=== PATIENT | female | born 1980 | race Two or more races ===

== ENCOUNTER 2017-09-02 19:32 | Emergency (ER) | payer OTHER ==
[2017-09-02 19:39] VITALS: BP 128/81
--- NOTE | 2017-09-02 19:51 | ER Document Report ---
ED Extremity Problem, Lower - General Chief Complaint: Toe Injury Stated Complaint: TOE INJURY Time Seen by Provider: 09/02/17 19:49 Mode of Arrival: Ambulatory Information source: Patient - HPI Patient complains to provider of: Injury, Pain Location: Great Toe Occurred: Just prior to arrival Where: Home Onset/Duration: Sudden Quality of pain: Achy Severity: Mild Pain Level: 1 Context: Stubbed Recent injury: Yes Exacerbated by: Movement, Walking Relieved by: Nothing Notes: Patient is a 37-year-old female presenting to the emergency room complaining of injury to left great toe, states she stubbed it on furniture and part of the nail actually came off, she states she called the nurse hotline who advised her to come to the emergency room for evaluation, she is already applied Neosporin to the area, there is no active bleeding, she denies pain or injury elsewhere - Related Data Allergies/Adverse Reactions: No Known Allergies Allergy (Unverified 09/02/17 19:35) Past Medical History - General Information source: Patient - Social History Smoking Status: Never Smoker Family History: Reviewed & Not Pertinent - Past Medical History Cardiac Medical History: Denies: Hx Coronary Artery Disease, Hx Heart Attack, Hx Hypertension Pulmonary Medical History: Denies: Hx Asthma, Hx Bronchitis, Hx COPD, Hx Pneumonia Neurological Medical History: Denies: Hx Cerebrovascular Accident, Hx Seizures Renal/ Medical History: Denies: Hx Peritoneal Dialysis Malignancy Medical History: Musculoskeltal Medical History: Denies Hx Arthritis Past Surgical History: Denies: Hx Hysterectomy, Hx Pacemaker - Immunizations Hx Diphtheria, Pertussis, Tetanus Vaccination: No Review of Systems - Review of Systems Constitutional: No symptoms reported EENT: No symptoms reported Cardiovascular: No symptoms reported Respiratory: No symptoms reported Gastrointestinal: No symptoms reported Genitourinary: No symptoms reported Female Genitourinary: No symptoms reported Musculoskeletal: See HPI Skin: See HPI Hematologic/Lymphatic: No symptoms reported Neurological/Psychological: No symptoms reported -: Yes All other systems reviewed and negative Physical Exam - Vital signs Vitals: Temp Pulse Resp BP Pulse Ox 99.1 F 71 15 128/81 H 99 09/02/17 19:37 09/02/17 19:37 09/02/17 19:37 09/02/17 19:37 09/02/17 19:37 - Notes Notes: - General General appearance: Appears well, Alert In distress: None - HEENT Head: Normocephalic, Atraumatic Eyes: Normal Conjunctiva: Normal Extraocular movements intact: Yes Eyelashes: Normal Pupils: PERRL - Respiratory Respiratory status: No respiratory distress - Cardiovascular Rhythm: Regular - Abdominal Inspection: Normal - Back Back: Normal - Extremities General upper extremity: Normal inspection General lower extremity: On the left great toe the lateral portion of the toenail is removed completely, patient has applied bacitracin to this area, there is no active bleeding, no drainage otherwise, distal sensation is intact - Neurological Neuro grossly intact: Yes Orientation: AAOx4 Rogers Coma Scale Eye Opening: Spontaneous Heath Coma Scale Verbal: Oriented Rogers Coma Scale Motor: Obeys Commands Rogers Coma Scale Total: 15 - Psychological Associated symptoms: Normal affect, Normal mood - Skin Skin Temperature: Warm Skin Moisture: Dry Skin Color: Normal Course - Re-evaluation Re-evalutation: 09/02/17 19:58 Patient with partial nail avulsion to the left great toe after stubbing her toe on some furniture, she is already applied bacitracin to the area, she was given a prescription for Keflex and advised to take it only if signs or symptoms of an infection should develop, otherwise advised to take Tylenol or Motrin as needed for pain, with the toe rest, follow-up with a primary care provider as needed or return if any additional concerns, patient acknowledges understanding and agreement with this plan - Vital Signs Vital signs: Temp Pulse Resp BP Pulse Ox 99.1 F 71 15 128/81 H 99 09/02/17 19:37 09/02/17 19:37 09/02/17 19:37 09/02/17 19:37 09/02/17 19:37 Discharge - Discharge Clinical Impression: Injury of left great toe Qualifiers: Encounter type: initial encounter Qualified Code(s): S99.922A - Unspecified injury of left foot, initial encounter Condition: Stable Disposition: HOME, SELF-CARE Instructions: Avulsed Nail ([facility]) Additional Instructions: Follow up with your primary care provider in one to 2 days. Return to the emergency room immediately if symptoms worsen or any additional concerns. Apply antibiotic ointment 2-3 times daily. Keep wound clean and covered. Take antibiotics only if signs and symptoms of an infection develop which is increased swelling or pain, increased redness, increased warmth, or pus drainage. Prescriptions: Cephalexin Monohydrate [Keflex 500 mg Capsule] 500 mg PO BID #20 capsule
== END 2017-09-02 19:54 | disposition home or self-care (01) ==
LOC: ER 19:32
DX: S99.922A Unspecified injury of left foot, initial encounter (principal); X58.XXXA Exposure to other specified factors, initial encounter
CPT/HCPCS: 99283